=== PATIENT | female | born 2000 | race Caucasian/White ===

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

== ENCOUNTER 2021-04-09 18:40 | Emergency (ER) | payer OTHER ==
[2021-04-09 19:13] VITALS: BP 134/73; PULSE 69; TEMP 97.9; BMI 30.7
[2021-04-09 20:28] LABS: HEMOGLOBIN 13.9 GM/dL (10.7-15.3); MCH 30.3 pg (25.7-33.7); MCHC 32.2 g/dl (32.0-36.0); MEAN CELL VOLUME 93.9 fl (80-96); MEAN PLT VOLUME 7.6 fl (7.5-11.1); PLATELET COUNT 261 10^3/uL (134-434); RBC 4.58 M/mm3 (3.60-5.2); WHITE BLOOD COUNT 13.3 K/mm3 (4.0-10.0)
[2021-04-09 21:08] LABS: CHLORIDE 108 mmol/L (98-107); SODIUM 141 mmol/L (136-145)
[2021-04-09 21:11] LABS: ANION GAP 4 MMOL/L (8-16); BLOOD UREA NITROGEN 13.1 mg/dL (7-18); CALCIUM 9.7 mg/dL (8.5-10.1); CO2 29 mmol/L (21-32)
[2021-04-09 21:12] LABS: GLUCOSE,RANDOM 74 mg/dL (74-106)
[2021-04-09 21:14] LABS: CREATININE 0.8 mg/dL (0.55-1.3); SGOT/AST 7 U/L (15-37); SGPT/ALT 10 U/L (13-61)
[2021-04-09] MEDS ORDERED: LORazepam 1 MG TABLET PO ONE (21:14)
[2021-04-09 21:16] LABS: BILIRUBIN,TOTAL 0.3 mg/dL (0.2-1); TOT PROT 7.3 g/dl (6.4-8.2)
[2021-04-09 21:17] LABS: ALK PHOS 73 U/L (45-117)
[2021-04-09 21:23] LABS: ANISOCYTOSIS 1+; MACROCYTOSIS 0; OVALOCYTE 1+; PLATELET ESTIMATE NORMAL; TOXIC GRANULATION 1+
[2021-04-09] MEDS ORDERED: LORazepam 1 MG TABLET ONE (21:50)
== END 2021-04-09 22:06 | disposition home or self-care (01) ==
LOC: JER 18:40
DX: F41.9 Anxiety disorder, unspecified (principal); R07.89 Other chest pain
CPT/HCPCS: 36415; 71046-TC-FY; 80053; 82550; 84484; 85025; 93005; 93010; 99284-25

== ENCOUNTER 2021-05-29 22:23 | Emergency (ER) | payer OTHER ==
[2021-05-29 22:26] VITALS: BP 105/58; PULSE 74; TEMP 97.5; BMI 31.1
[2021-05-31 13:07] LABS: SARS-CoV-2 NAA Not Detected (Not Detected)
== END 2021-05-29 22:59 | disposition home or self-care (01) ==
LOC: JER 22:23
DX: R09.81 Nasal congestion (principal)
CPT/HCPCS: 99283-25; C9803; U0003; U0005

== ENCOUNTER 2022-10-23 19:06 | Emergency (ER) | payer OTHER ==
[2022-10-23 19:11] VITALS: BP 142/72; PULSE 66; RESP 20; TEMP 98.7; BMI 30.7
[2022-10-23] MEDS ORDERED: CLINDAMYCIN HCL 300 MG CAPSULE PO ONE (20:42)
[2022-10-23] MEDS ORDERED: DOXYCYCLINE HYCLATE 100 MG CAPSULE PO ONE ×2 (20:43→20:48)
[2022-10-23] MEDS ORDERED: DIPHTH,PERTUSS(ACELL),TET 0.5 ML DISP.SYRIN IM ONE ×2 (20:43→20:49)
[2022-10-23] MEDS ORDERED: CLINDAMYCIN HCL 150 MG CAPSULE (FP) ONE (20:48)
== END 2022-10-23 21:02 | disposition home or self-care (01) ==
LOC: JER 19:06 → JERFT 19:06
PROC: 3E0234Z Introduction of Serum, Toxoid and Vaccine into Muscle, Percutaneous Approach (ICD-10-PCS; principal; 2022-10-23)
DX: S81.852A Open bite, left lower leg, initial encounter (principal); W54.0XXA Bitten by dog, initial encounter
CPT/HCPCS: 90471; 90715; 99283-25

== ENCOUNTER 2023-01-27 18:20 | Emergency (ER) | payer OTHER ==
[2023-01-27 18:38] VITALS: BP 125/62; PULSE 85; RESP 18; TEMP 98.5; BMI 30.7
[2023-01-27] MEDS ORDERED: ACETAMINOPHEN 500 MG TABLET (FP) PO ONE (21:14)
[2023-01-27] MEDS ORDERED: LIDOCAINE 4% PATCH TP ONE ×2 (21:14→21:20)
[2023-01-27] MEDS ORDERED: IBUPROFEN 600 MG TABLET (FP) PO ONE ×2 (21:14→21:20)
[2023-01-27] MEDS ORDERED: CYCLOBENZAPRINE HCL 10 MG TABLET (FP) PO ONE (21:14)
[2023-01-27] MEDS ORDERED: LIDOCAINE 5% TOPICAL PATCH TP ONE (21:19)
[2023-01-27] MEDS ORDERED: CYCLOBENZAPRINE HCL 10 MG TABLET (FP) ONE (21:20)
[2023-01-27] MEDS ORDERED: ACETAMINOPHEN 500 MG TABLET (FP) ONE (21:21)
[2023-01-27] MEDS ORDERED: LIDOCAINE PATCH REMOVAL MC SCH ×2 (22:00)
== END 2023-01-27 21:23 | disposition home or self-care (01) ==
LOC: JERFT 18:20
DX: M54.2 Cervicalgia (principal); V43.62XA Car passenger injured in collision with other type car in traffic accident, initial encounter; Y92.481 Parking lot as the place of occurrence of the external cause
CPT/HCPCS: 99283-25